=== PATIENT | male | born 2000 | race African-American/Black ===

== ENCOUNTER 2023-04-12 09:32 | Outpatient (CLI) | payer OTHER ==
--- NOTE | 2023-04-12 14:56 | SLEEP CARE CONSULTATION ---
Information from patient questionnaire entered by Stephanie Segura. I have reviewed and concur with the information entered by Stephanie Segura. This document represents the service I personally performed and the decisions made by me, Miranda Steiner MD, [facility]. History of Present Illness Service Date and Time: 04/12/2023 0932 Reason for Visit: New patient Chief Complaint: reports: Unrefreshed sleep, Excessive daytime sleepiness, Frequent awakenings at night Date of Onset: 2019 Usual bedtime: 7718-5235 Time it takes to fall asleep: 25-30MIN Snores at night: No Observed to quit breathing while asleep: No Sleeps alone due to snoring: No Number of times waking at night: 1-2 Reasons for waking at night: reports: Other (ALARMED THAT I AM SLEEPING TO LATE) Toss, Turn, or Twitch while sleeping: Yes Recalls having dreams: No Usually gets out of bed at: 0530 Feels refreshed in the morning: No Morning headache: Yes Sleepy or fatigued during the day: Yes Ever fallen asleep while driving: No Takes day naps: Yes Dreams during day naps: No Prior sleep studies: No Additional HPI information: I had the pleasure of seeing Mr. Haley today regarding the possibility of him having a sleep disorder. As you know, he is a 23-year-old gentleman who complains of frequent awakenings, unrefreshed sleep, and excessive daytime sleepiness for about 3 years. The patient tells me that he normally goes to bed around 9 - 11 pm, and it takes him approximately 30 minutes to fall asleep. He has not been told that he snores loudly and irregularly at night. He has never been observed to stop breathing in his sleep. However, he sleeps alone. He can recall waking up on the average of 1 - 2 times during the night and has difficulty falling back asleep. Most of the time he wakes up because of unknown reason. He has never awakened because of his own snoring, choking, or having to gasp for air. There is a lot of tossing and turning in his sleep. No somniloquy (sleep talking) or somnambulism (sleep walking). Generally, there is no recollection of dreams. In the morning he usually gets up out of the bed around 5:30 a.m. (9 am on his days off) not feeling refreshed nor rested. He usually does have a morning headache. During the day he complains of feeling sleepy and fatigued. His score on Hall Sleepiness Scale is 8 out of 24. He never has fallen asleep while driving nor has had any accident due to sleepiness. He usually takes a nap during the day. Upon falling asleep during the day he denies having vivid dreams. He denies having impaired concentration during the day. - Parasomnia Symptoms Ever been unable to move upon waking from sleep: No Walks in sleep: No Talks in sleep: No Ever acted out dreams in sleep: No Ever felt weak in the knees when startled or emotional: No Bothered by creepy, crawly, restless sensations in legs: No Problems with memory or concentration: No Subjective Initial Hall Sleepiness Scale score: 12 (04/12/23) Social History The patient's occupation is a AM. Patient is Single and lives in [place]. Have you smoked in the past 12 months: Yes (VAPE 5 X DAY) Alcohol use: Yes Alcohol amount and frequency: 2 CANS A MONTH Caffeine use: Yes Caffeine amount and frequency: 1-2 A DAY Family History Family history of sleep disordered breathing: Yes Family Hx Sleep Apnea: Mother: Snoring, Father: Snoring, Sibling: Snoring Allergies and Home Medications Known drug allergies: No Drug allergies reviewed: Yes Home medication list reviewed: Yes Allergy and home medication list: Allergies No Known Drug Allergies Allergy (Verified 04/09/23 10:22) Review of Systems Weight gain over past 5 years: 30 Weight loss over past 5 years: 20 Cardiovascular: denies: high blood pressure, palpitations, chest pain, irregular heart rate or pulse, leg or foot swelling, have to sleep sitting up, other Respiratory: denies: shortness of breath, wheeze, sputum production, chronic cough, other Gastrointestinal: denies: heartburn, difficulty swallowing, nausea, vomitting, diarrhea, abdominal pain, other Urinary: denies: incontinence, frequency, urgency, impotence, other Neurological: denies: headaches, seizure, head trauma, disorientation, speech d ysfunction, gait or balance problems, fainting or unconsciousness, other Ear/Nose/Throat: reports: sinus problems, nose bleeds Endocrine: reports: sluggishness, too hot or cold Musculoskeletal: denies: joint pain, neck pain, back pain, joint swelling, muscle pain or cramping, mobility problems, other Immunologic: reports: allergies to food or environment Physical Exam Vital signs obtained and entered by: STEPHANIE Peo MA Blood Pressure: 122/78 (LEFT ARM) Cuff size: regular Heart Rate: 67 O2 Saturation: 98 Height: 6 ft 4 in Weight: 274 lb 12.8 oz Body Mass Index: 33.4 BMI Classification: Obese Neck circumference: 18 Mood/affect: Normal HEENT: No craniofacial malformation Nostrils: patent to airflow Turbinates: normal Septum: midline Mouth and throat: narrow oropharynx Soft palate: long Hard palate: normal Uvula: normal Uvula visualization: 50% Mallampati Class II Tongue: normal in size Tonsils: 1+ Chin and jaw: normal size and position Neck: normal w/o lymphadenopathy or thyromegaly Heart: regular rate and rhythm Lungs: clear bilaterally Extremities: no edema or clubbing Impression and Plan IMPRESSION: 1. Obstructive Sleep Apnea-Hypopnea Syndrome, as suggested by history of frequent awakenings during the night, unrefreshed sleep, and daytime hypersomnolence. Narrow oropharynx and obesity are common predisposing factors for obstructive sleep apnea-hypopnea syndrome. I recommend proceeding to polysomnography to confirm the diagnosis and to assess severity. If he has significant sleep disordered breathing, a manual CPAP titration study will also be performed to find the optimal treatment pressure. I informed the patient of what the sleep studies involve and after some discussion, he agreed to proceed. Plan: 1. Schedule polysomnography + manual CPAP titration study and return in 1 to 2 weeks after the study to discuss result and initiate therapy. 2. Avoid long distance driving or when feeling sleepy. 3. Avoid alcohol, sedatives, and muscle relaxants around bedtime. 4. Attempt to lose weight. Counseling Topics: Weight loss health impact Follow up with Sleep Care in: 1-2 months Visit Type: In Office Time Spent with Patient (minutes): 15 Provider Statement: I spent 100% of the Face to Face Visit with the patient with greater than 50% spent counseling the patient and coordination of care.
[2023-04-12 15:05] VITALS: BP 122/78
== END 2023-04-12 09:33 | disposition home or self-care (01) ==
LOC: SC 09:32
PROVIDERS: ATTEND Internal Medicine Pulmonary Disease
DX: G47.8 Other sleep disorders (principal); G47.10 Hypersomnia, unspecified; E66.9 Obesity, unspecified; Z68.33 Body mass index [BMI] 33.0-33.9, adult; F17.290 Nicotine dependence, other tobacco product, uncomplicated
CPT/HCPCS: 99202; 99212

== ENCOUNTER 2023-05-20 19:13 | Outpatient (CLI) | payer OTHER | END 2023-05-20 19:14 | disposition home or self-care (01) | LOC: SC 19:13 | PROVIDERS: ATTEND Internal Medicine Pulmonary Disease | DX: G47.8 Other sleep disorders (principal); G47.10 Hypersomnia, unspecified; E66.9 Obesity, unspecified; Z68.33 Body mass index [BMI] 33.0-33.9, adult | CPT/HCPCS: 95810 ==